=== PATIENT | male | born 1935 | race Hispanic/Latino ===

== ENCOUNTER 2017-10-19 06:15 | Day surgery (SDC) | payer OTHER ==
[~2017-10-19] VITALS: Ht 152.4 cm; Wt 56.2 kg
[~2017-10-19 06:15] MED LIST: AMOX1TAB16 PO; CARB1TAB20 PO
[2017-10-19 06:34] VITALS: BP 147/60
[2017-10-19] MEDS ORDERED: CEFAZOLIN SODIUM 1 GM VIAL ONE (07:02)
[2017-10-19] MEDS ORDERED: SODIUM CHLORIDE 0.9% 1000ML 1,000 ML IV ONE (07:02)
[2017-10-19] MEDS ORDERED: MIDAZOLAM HCL 1 MG/ML 2ML VIAL ONE (09:24)
[2017-10-19] MEDS ORDERED: FENTANYL CITRATE PF 50 MCG/1 ML 2ML VIAL ONE (09:24)
[2017-10-19] MEDS ORDERED: PROPOFOL 10 MG/ML 20ML VIAL IV ONE (09:43)
== END 2017-10-19 10:30 | disposition home or self-care (01) ==
LOC: ENDO 06:15 → DAH 06:15 → ENDO 10:30
PROVIDERS: ATTEND Internal Medicine Gastroenterology
DX: R13.10 Dysphagia, unspecified (principal); R63.3 Feeding difficulties; K21.9 Gastro-esophageal reflux disease without esophagitis; I10 Essential (primary) hypertension; G20 Parkinson's disease; M19.90 Unspecified osteoarthritis, unspecified site; Z98.890 Other specified postprocedural states; Z80.8 Family history of malignant neoplasm of other organs or systems; Z79.899 Other long term (current) drug therapy
CPT/HCPCS: 43246; A4606; J0690; J2250; J2704; J3010; J7030

== ENCOUNTER → 2018-10-06 | Outpatient (CLI) | payer OTHER ==
[~2018-10-06] MED LIST changes: +DIATR MEGLU/DIATRIZOATE SODIUM 30 ML BOTTLE ONE
== END | disposition home or self-care (01) ==
LOC: RAH 10:00
PROVIDERS: ATTEND Internal Medicine Gastroenterology
DX: K94.20 Gastrostomy complication, unspecified (principal)
CPT/HCPCS: 74018; Q9963

== ENCOUNTER 2018-12-12 15:51 | Inpatient (IN) | payer OTHER | END 2018-12-22 16:05 | disposition home or self-care (01) | LOC: EDH 15:51 → 3AH 12-13 03:02 → 3BH 12-18 18:18 → EDH 17:11 → EDHIP 19:14 → 3BH 12-13 17:10 | DX: A41.9 Sepsis, unspecified organism (principal); J69.0 Pneumonitis due to inhalation of food and vomit; J96.01 Acute respiratory failure with hypoxia; J98.11 Atelectasis; J44.0 Chronic obstructive pulmonary disease with (acute) lower respiratory infection; E87.2 Acidosis; M62.82 Rhabdomyolysis; R53.81 Other malaise ==